=== PATIENT | male | born 1950 | race Caucasian/White ===

== ENCOUNTER 2017-10-13 11:35 | Emergency (ER) | payer MEDICARE ==
[2017-10-13 13:08] LABS: #Basophils 0.1 thou/uL (0.0-0.2); #Eosinphils 0.7 thou/uL (0.0-0.7); #Lymphocytes 1.9 thou/uL (1.20-3.40); #Monocytes 0.6 thou/uL (0.11-0.59); #Neutrophils 6.9 thou/uL (1.40-6.50); %Basophils 0.7 % (0.0-1.0); %Eosinophils 7.1 % (0.0-10.0); %Lymphocytes 18.7 % (21.0-51.0); %Monocytes 5.4 % (0.0-10.0); %Neutrophils 68.1 % (42.0-75.0); Hemoglobin 13.2 g/dL (14.0-18.0); Mean Corpuscular HGB CONC 33.1 g/dL (32.0-36.0); Mean Corpuscular Hemoglobin 32.3 pg (27.0-31.0); Mean Corpuscular Volume 97.5 fL (78.0-98.0); Mean Platelet Volume 7.4 fL (7.4-10.4); Platelet Count 191 thou/uL (130-400); RBC Distribution Width 13.3 % (11.5-14.5); Red Blood Cell (RBC) Count 4.09 mill/uL (4.70-6.10); White Blood Cell (WBC) Count 10.1 thou/uL (4.8-10.8)
[2017-10-13] MEDS ORDERED: Acetaminophen 500 MG TAB ONE (13:13)
--- NOTE | 2017-10-13 13:23 | RAD ---
THREE VIEWS LEFT FOOT: Comparison: Fell through the door one month ago and hurt toe. FINDINGS: Three views of the left foot shows a remote healing fracture of the distal aspect of the proximal pha lanx of the great toe. There is joint space narrowing in the interphalangeal joint of the great toe a nd in the PIP joint of the second toe. IMPRESSION: Healing proximal phalanx fracture of the great toe. POS: [facility]
--- NOTE | 2017-10-13 13:25 | RAD ---
SINGLE VIEW OF THE CHEST: Comparison: 10-22-16 FINDINGS: Fell through a door one month ago with shortness of breath. FINDINGS: Single view of the chest shows a normal sized cardiomediastinal silhouette. The pacemaker is unchange d in position. There is no evidence of consolidation, mass, or pleural effusion. Degenerative changes are seen in the spine. There are healed remote right rib fractures. IMPRESSION: No evidence of acute cardiopulmonary disease. POS: [facility]
[2017-10-13 13:28] LABS: ALT (SGPT) 14 U/L (8-55); AST (SGOT) 15 U/L (5-34); Alkaline Phosphatase 100 U/L (40-150); Anion Gap 15 mmol/L (10-20); BUN (Urea Nitrogen) 29 mg/dL (8.4-25.7); Bilirubin, Total 0.4 mg/dL (0.2-1.2); CRP (Inflammatory) Less than 0.50 mg/dL (= or < 0.5); Calc. Creatinine Clearance 0 mL/min (70-130); Calcium 9.8 mg/dL (7.8-10.44); Carbon Dioxide 32 mmol/L (23-31); Chloride 96 mmol/L (98-107); Estimated GFR-MDRD 37; Globulin 2.8 g/dL (2.4-3.5); Glucose 113 mg/dL (80-115); Potassium 4.1 mmol/L (3.5-5.1); Protein, Total 6.8 g/dL (5.8-8.1); Sodium 139 mmol/L (136-145)
[2017-10-13 13:34] LABS: CKMB 1.6 ng/mL (0-6.6); Troponin I Less than 0.010 ng/mL (< 0.028)
[2017-10-13] MEDS ORDERED: predniSONE 20 MG TAB ONE (14:39)
== END 2017-10-13 15:12 | disposition home or self-care (01) ==
LOC: ERS 11:35
DX: S92.412A Displaced fracture of proximal phalanx of left great toe, initial encounter for closed fracture (principal); J44.1 Chronic obstructive pulmonary disease with (acute) exacerbation; N17.9 Acute kidney failure, unspecified; L97.529 Non-pressure chronic ulcer of other part of left foot with unspecified severity; I11.0 Hypertensive heart disease with heart failure; I50.9 Heart failure, unspecified; I25.10 Atherosclerotic heart disease of native coronary artery without angina pectoris; F31.9 Bipolar disorder, unspecified; F41.9 Anxiety disorder, unspecified; I48.91 Unspecified atrial fibrillation; F25.9 Schizoaffective disorder, unspecified; F17.210 Nicotine dependence, cigarettes, uncomplicated; M19.90 Unspecified osteoarthritis, unspecified site; Z79.82 Long term (current) use of aspirin; Z86.73 Personal history of transient ischemic attack (TIA), and cerebral infarction without residual deficits; Z79.899 Other long term (current) drug therapy; Z87.891 Personal history of nicotine dependence; W22.8XXA Striking against or struck by other objects, initial encounter
CPT/HCPCS: 36415; 71045; 80053; 82553; 83880; 84484; 85025; 85652; 86140; 93005; J7506; J7620

== ENCOUNTER 2017-10-23 10:03 | Outpatient (CLI) | payer MEDICARE ==
--- NOTE | 2017-10-23 15:47 | NM ---
THREE PHASE BONE SCAN: INDICATION: History of concern for osteomyelitis of the left great toe. COMPARISON: Left foot radiograph dated 10/13/17. RADIOPHARMACEUTICAL: 31.6 mCi Technetium 99m-MDP IV. FINDINGS: There is increased blood flow, blood pool, and delayed phase radiotracer accumulation within the mirian on of the left great toe. The delayed phase of uptake is seen within the region of the distal phalan x and distal proximal phalanx of the left great toe. Review of a radiograph from 10/13/17 demonstrate s a nondisplaced fracture involving the left great toe proximal phalangeal neck. There is radiotrace r defect involving the right knee consistent with a knee replacement. There is a pacemaker defect ov erlying the left chest wall. There is some scattered degenerative change involving the ankles, feet, left knee, and shoulders. IMPRESSION: 1. Positive 3-phase bone scan with involvement of the left great toe distal phalanx and distal proxi mal phalanx. This can be seen in patient's with a healing fracture. The patient does have a nondisp laced fracture involving the left great toe proximal phalangeal neck. Osteomyelitis can have a simil ar appearance. The patient reportedly does have a plantar-based wound near the left great toe. MRI examination is recommended to exclude the presence of possible osteomyelitis as well. No definite de structive osteolysis was seen on the radiograph from 10/13/17. 2. Other findings as above. POS: [facility]
== END 2017-10-23 10:04 | disposition home or self-care (01) ==
LOC: NM 10:03
PROVIDERS: ATTEND Family Medicine
DX: Q79.9 Congenital malformation of musculoskeletal system, unspecified (principal); L98.9 Disorder of the skin and subcutaneous tissue, unspecified
CPT/HCPCS: 78315; A9503